=== PATIENT | male | born 1950 | race Caucasian/White ===

== ENCOUNTER → 2019-04-15 06:17 | Outpatient (CLI) | payer MEDICARE, OTHER, SELFPAY ==
--- NOTE | 2019-04-15 06:24 | ECHOD_ITS ---
Version 2 Reason For Study: PALPITATIONS Procedure This was a 2D Doppler, Color Flow transthoracic echocardiogram. Exam performed in department. Left Ventricle Normal LV size. The estimated ejection fraction is 55 %. No evidence for diastolic dysfunction. No regional wall motion abnormalities noted. Right Ventricle Normal RV size. Normal systolic function. Atria Normal left atrium. Normal right atrium. No doppler evidence for ASD. Mitral Valve There is no mitral valve stenosis. Trivial mitral valve insufficiency. Tricuspid Valve There is no tricuspid stenosis. Trivial tricuspid valve insufficiency. Pulmonary artery systolic pressure is 30 mmHg. Aortic Valve Trisinus/trileaflet aortic valve. There is no aortic stenosis. No aortic valve insufficiency. Pulmonic Valve There is no pulmonic valvular stenosis. No pulmonic valve insufficiency. Great Vessels Normal aortic root. Pericardium/Pleural No pericardial effusion. MMode/2D Measurements & Calculations LVIDd: 5.1 cm IVSd: 1.1 cm Ao root diam: 4.0 cm LVIDs: 3.3 cm LVPWd: 1.1 cm RVDd: 3.9 cm FS: 34.9 % LAV(MOD-bp): 45.9 ml LVAd ap4: 34.3 cm2 SV(MOD-sp4): 66.4 ml LAV(MOD-bp) Indexed: 22.7 ml/m2 EDV(MOD-sp4): 110.0 ml LAV(MOD-sp2): 50.1 ml EDV(sp4-el): 116.4 ml LAV(MOD-sp4): 38.7 ml LVAs ap4: 18.5 cm2 ESV(MOD-sp4): 43.6 ml ESV(sp4-el): 42.1 ml EF(MOD-sp4): 60.4 % EF(sp4-el): 63.9 % SV(sp4-el): 74.4 ml LA A4 area: 15.1 cm2 LA dimension(2D): 4.3 cm RA A4 area: 15.6 cm2 Time Measurements MV dec time: 0.25 sec Doppler Measurements & Calculations MV E max farshad: 80.1 cm/sec Lat Peak E' Farshad: 11.6 cm/sec Med Peak E' Farshad: 6.7 cm/sec MV A max farshad: 71.5 cm/sec E/E' lat: 6.9 E/E' med: 11.9 MV E/A: 1.1 Ao V2 max: 126.2 cm/sec LV V1 max: 117.9 cm/sec PA V2 max: 95.2 cm/sec Ao max P.4 mmHg LV V1 max P.6 mmHg PI end-d farshad: 81.1 cm/sec TR max farshad: 233.2 cm/sec TR max P.8 mmHg Interpretation Summary The estimated ejection fraction is 55 %. Pulmonary artery systolic pressure is 30 mmHg. No evidence for diastolic dysfunction. Ordering Physician: Rosa Nash Referring Physician: Rosa Nash Performed By: Karen Molina, RDCS, RVT
--- NOTE | 2019-04-20 17:29 | STRESSREP ---
Stress Test Report Date: 04/15/2019 Procedure: Exercise tolerance test/imaging study Indications: Chest pain, palpitations Consent: Per the patient Procedure: The patient exercised on a Aron protocol for 7 minutes achieving a peak heart rate of 151 bpm (100 % predicted maximal heart rate) with a peak blood pressure 180/92 mmHg and a peak MET capacity of 8.5 METs. The baseline ECG demonstrated normal sinus rhythm. The peak exercise ECG demonstrated no significant ischemic changes. EKG during recovery revealed no significant ischemic changes [There were no significant cardiac dysrhythmias pretest, during exercise, or recovery]. The functional capacity was considered normal forage. There was [no complaint of chest discomfort during exercise or recovery]. The examination was discontinued secondary to shortness of breath. Impression: 1. Technically adequate (percent predicted maximal heart rate greater than 85%) exercise tolerance test 2. Stress test is negative for exercise-induced EKG changes of ischemia 3. The test test is negative for exercise-induced chest pain 4. Functional capacity is[normal for age] 5. Nuclear images pending Myocardial perfusion imaging study: Technique: The patient was injected with 11 mCi of technetium 99m Cardiolite and subsequently rest SPECT Cardiolite nuclear imaging was obtained in the horizontal long, vertical long, and short axis views. The patient exercised on a Aron protocol. Please see above for details. The patient was injected with [] mCi of technetium 99m Cardiolite and subsequently stress SPECT Cardiolite nuclear imaging was obtained in the horizontal long, vertical long, and short axis views. A gated Cardiolite study at peak stress was obtained. Interpretation: Rest and stress SPECT Cardiolite nuclear imaging status post realignment, normalization, and attenuation correction, demonstrates normal myocardial radioisotope uptake. The gated Cardiolite study demonstrates no significant regional wall motion abnormalities. The reported LVEF is 61 %. Impression: 1. There is no evidence of significant ischemia or infarction. 2. The gated Cardiolite study reports an LVEF of 61 %. This note was generated with [employer] software. It may contain incorrect words, spelling, and punctuation that were not noted in checking the note before signing.
== END ==
PROVIDERS: Family Provider Internal Medicine Infectious Disease; PCP Internal Medicine Infectious Disease; Referring Provider Internal Medicine Infectious Disease; Visit Provider Internal Medicine Infectious Disease
DX: R00.2 Palpitations (principal); R07.9 Chest pain, unspecified
CPT/HCPCS: 78452; 93017; 93306; A9500; A4216

== ENCOUNTER → 2020-10-23 09:52 | Outpatient (CLI) | payer MEDICARE, OTHER, SELFPAY ==
--- NOTE | 2020-10-23 09:58 | RAD_ITS ---
STUDY: X-RAY - PELVIS AND BILATERAL HIPS REASON FOR EXAM: Male, 70 years old. RIGHT HIP PAIN TECHNIQUE: AP view of the pelvis.? 2 views of the right hip, and 2 views of the left hip were obtained. COMPARISON: None. FINDINGS: There is a non-specific bowel gas pattern. Normal visualized soft tissue structures. There is narrowing with cortical sclerosis and osteophyte formation of the sacroiliac joint consistent with degenerative osteoarthritic changes. Normal bilateral superior and inferior pubic rami. Normal pubic symphysis. Normal bilateral ischial tuberosities. Normal visualized right femoral head. Normal right acetabulum. There is moderate articular joint space narrowing of the right hip. Normal visualized left femoral head. Normal left acetabulum. There is moderate articular joint space narrowing of the left hip. RAD/Hips B/L min 2 views w/ Pelvis IMPRESSION: Age consistent degenerative changes, no demonstrated fracture or suspicious osseous lesion Electronically Signed: Rajesh Rome MD at 8:33 EDT , Service support ,
[2020-10-23 12:25] LABS: Absolute Lymphocyte Count 1.26 X10^3/uL (0.83-4.51); Absolute Neutrophil Count 2.3 X10^3/uL (2.0-7.7); Basophil# 0.05 X10^3/uL; Basophil% 1.2 % (0-1); Eosinophil# 0.17 X10^3/uL; Eosinophils% 4.2 % (0-5); Hematocrit 44.8 % (40-54); Hemoglobin 14.3 g/dL (13.0-16.5); Lymphocyte # 1.26 X10^3/ul (0.83-4.51); Lymphocyte % 31.1 % (19-41); Mean Corp Hgb Conc 31.9 g/dL (32-36); Mean Corpuscular Hgb 31.2 pg (27.0-32.0); Mean Corpuscular Volume 97.8 fL (80-94); Mean Platelet Vol. 11.6 fl (6.2-12.0); Monocyte% 7.4 % (0-10); NRBC Flagged by Analyzer 0 % (0-5); Neutrophil # 2.27 X10^3/uL (2.7-7.7); Neutrophil % 56.1 % (47-70); Platelet Count 201 K/mm3 (150-450); RBC Distribution Width CV 12.6 % (11.6-14.6); RBC Distribution Width SD 45.2 fl (35.1-43.9); Red Blood Count 4.58 M/mm3 (4.6-6.2); White Blood Count 4.1 K/mm3 (4.4-11.0)
[2020-10-23 12:49] LABS: ALB/GLOB Ratio 1.1 RATIO (0.9-2.4); AST(SGOT) 11 U/L (15-37); Alanine Aminotransfer ALT/SGPT 24 U/L (16-61); Albumin, Serum 3.9 g/dL (3.2-5.0); Alkaline Phosphatase 102 U/L (45-117); Anion Gap 3 (5-15); BUN 17 mg/dL (7-18); Calcium,Total 8.8 mg/dL (8.5-10.1); Chloride 107 mmol/L (98-107); Cholesterol 171 mg/dL (200); Creatinine, Serum 0.85 mg/dL (0.70-1.30); EST Glomerular Filtration Rate 94 mL/min (>60); Est Glom Filt Rate - Afr Amer 114 mL/min (>60); Globulin 3.5 g/dL (2.2-4.2); Glucose 81 mg/dL (74-106); High Density Lipoprotein 53 mg/dL; PSA,Total- Diagnostic 6.94 ng/mL (0.0-4.0); Potassium 3.7 mmol/L (3.5-5.1); Protein, Total 7.4 g/dL (6.4-8.2); Sodium Level 140 mmol/L (136-145); Triglycerides 84 mg/dL; Very Low Density Lipoprotein 17 mg/dL (5-40)
[2020-10-23 13:18] LABS: Hepatitis C Antibody Non-Reactive (Nonreactive)
== END ==
PROVIDERS: PCP Family Medicine; Referring Provider Family Medicine; Visit Provider Family Medicine
DX: M25.551 Pain in right hip (principal); R97.20 Elevated prostate specific antigen [PSA]; Z11.59 Encounter for screening for other viral diseases; Z13.220 Encounter for screening for lipoid disorders
CPT/HCPCS: 36415; 73521; 80053; 80061; 84153; 85025; 86803

== ENCOUNTER → 2022-01-11 | Outpatient (CLI) | payer MEDICARE, OTHER, SELFPAY ==
[2022-01-11 17:35] LABS: Absolute Lymphocyte Count 1.87 X10^3/uL (0.83-4.51); Absolute Neutrophil Count 2.5 X10^3/uL (2.0-7.7); Basophil# 0.06 X10^3/uL; Basophil% 1.2 % (0-1); Eosinophil# 0.26 X10^3/uL; Eosinophils% 5.1 % (0-5); Hematocrit 41.9 % (40-54); Hemoglobin 14.3 g/dL (13.0-16.5); Lymphocyte # 1.87 X10^3/ul (0.83-4.51); Lymphocyte % 36.7 % (19-41); Mean Corp Hgb Conc 34.1 g/dL (32-36); Mean Corpuscular Volume 96.8 fL (80-94); Mean Platelet Vol. 11.2 fl (6.2-12.0); Monocyte# 0.43 X10^3/uL; Monocyte% 8.4 % (0-10); NRBC Flagged by Analyzer 0 % (0-5); Neutrophil # 2.47 X10^3/uL (2.7-7.7); Neutrophil % 48.4 % (47-70); Platelet Count 184 K/mm3 (150-450); RBC Distribution Width CV 12.4 % (11.6-14.6); RBC Distribution Width SD 44.5 fl (35.1-43.9); Red Blood Count 4.33 M/mm3 (4.6-6.2); White Blood Count 5.1 K/mm3 (4.4-11.0)
[2022-01-11 18:03] LABS: Albumin, Serum 3.9 g/dL (3.2-5.0); BUN 20 mg/dL (7-18); BUN/Creat Ratio 22.3 RATIO (10-20); EST Glomerular Filtration Rate 88 mL/min (>60); Est Glom Filt Rate - Afr Amer 107 mL/min (>60); Glucose 82 mg/dL (74-106); Protein, Total 7.3 g/dL (6.4-8.2)
[2022-01-11 18:04] LABS: ALB/GLOB Ratio 1.1 RATIO (0.9-2.4); AST(SGOT) 18 U/L (15-37); Alanine Aminotransfer ALT/SGPT 29 U/L (16-61); Alkaline Phosphatase 92 U/L (45-117); Anion Gap 5 (5-15); Calcium,Total 8.7 mg/dL (8.5-10.1); Chloride 107 mmol/L (98-107); Globulin 3.4 g/dL (2.2-4.2); Sodium Level 139 mmol/L (136-145)
== END | disposition home or self-care (01) ==
LOC: MTLAB 15:28
PROVIDERS: PCP Family Medicine; Referring Provider Family Medicine; Visit Provider Family Medicine
DX: Z00.00 Encounter for general adult medical examination without abnormal findings (principal)
CPT/HCPCS: 36415; 80053; 85025

== ENCOUNTER 2022-03-10 09:16 | Emergency (ER) | payer MEDICARE, OTHER, SELFPAY ==
[2022-03-10 09:18] VITALS: BP 130/79; PULSE 70; RESP 18; TEMP 36.7; O2SAT 97; BMI 27.8
--- NOTE | 2022-03-10 09:32 | EDS_ITS ---
HPI History of Present Illness Chief Complaint: Lower Extremity Injury Detail of Chief Complaint: pain R calf Informant: patient Onset/Context/Timing Onset: Weeks (1) Context: Gradual Onset Timing: Waxes and wanes Quality of Pain: - (sore) Location: R calf Current Severity: Moderate Maximum Severity: Moderate Worsened by: palpation Relieved by: walking Associated Symptoms Associated Symptoms: Negative for Parasthesia, Weakness or Loss of Funtion Narrative Narrative: Patient has a remote history of a DVT, concern he may have another 1. No longer on anticoagulants. He states he traveled home by car from the [facility] 1 week ago and since then he has had some soreness in his right calf off and on waxing and waning. It is better when he walks. There is a slight amount of redness that has not progressed. The pain is not progressed but it is radiating into his thigh. He called his doctor's office before the weekend and was advised to come to the ER, but for multiple reasons today Friday is the day he could get here. He denies any chest pain, shortness of breath, palpitations, syncope. He states during his travel, he was out of the car not infrequently, stayed overnight twice. [facility] Medical History (Updated 03/10/22 @ 11:[address] Rosalio Hester MD) Right leg DVT Allergy/AdvReac Type Severity Reaction Status Date / Time No Known Allergies Allergy Verified 03/10/22 09:18 Social History Smoking Status: Never smoker [facility] ED Constitutional Constitutional ED: Denies chills or fever(s) Musculoskeletal Musculoskeletal: Reports extremity pain; Denies neck pain Integumentary Denies Abrasions, rash or wounds Neurologic Neurologic: Denies paresthesias or weakness EXAM Physical Exam Const Vital Signs: 03/10/22 09:18 Temperature 98.0 F Temperature Source Temporal Pulse Rate 70 Respiratory Rate 18 Blood Pressure 130/79 H Blood Pressure Mean 96 Pulse Ox 97 Oxygen Delivery Method Room Air Positive well nourished and well developed General Appearance ED: well developed and NAD Neck full ROM and supple Back/Spine normal ROM and normal to inspection Extremity full ROM Extremity Narrative: Point tender in the right calf at 1 particular area that is slightly erythematous. There is no induration or abscess. There is no lymphangitis or inguinal lymphadenopathy. There is no thigh tenderness or popliteal tenderness. There is no edema or asymmetry compared with the contralateral side except for the slight erythematous area that is tender. It is in a linear distribution that would be consistent with a superficial venous thrombosis. He has several minor venous varicosities in separate areas. Neuro oriented x3, no focal motor deficits and no sensory deficits noted Sensorium / Orientation: alert Psych mental status grossly normal and thought process normal Skin no wounds Skin Narrative: Slight erythema at 1 point in his right calf see above. Rashes: no rashes MDM MDM MDM Narrative Medical decision making narrative: Duplex ultrasound right lower extremity was done, it does show a small SVT where the patient is having pain and tenderness and redness, but he also has a gastroc vein DVT that is distal to the trifurcation. It is provoked since the patient recently traveled around the same time this started. Given this, it would be reasonable to do serial ultrasounds to continue monitoring and place him on anticoagulation if the clot travels to or beyond the trifurcation at the popliteal fossa. We will help set that up for him, I advised warm compresses for the SVT and he is comfortable with that plan. Discussed with his PCP Dr. Isaacs on following up for the serial ultrasound results. Discharge Plan Triage Chief Complaint: Lower Extremity Injury ED Provider: Rosalio Hester Dx/Rx/DC Orders Clinical Impression: Deep vein thrombosis (DVT) of right lower extremity, Acute superficial venous thrombosis of right lower extremity Instructions: DVT Dc Other Ambulatory Orders: Venous Duplex US, Unilateral (Stat) Facility: [facility] - Location: [facility] Ordered By: Dr. Rosalio Hester Primary Care Provider: Fareed Isaacs Referrals: Fareed Isaacs MD [Primary Care Provider] - Activity Restrictions/Additional Instructions: Assuming nothing changes we will get serial ultrasounds on days 3, 7, 10, 14. As long as scheduling goes okay, this will be on March 12, , , and . Since some of these fall on weekends, it is possible ultrasound we will schedule you for a different day which is okay. Disposition Disposition: Home, Self Care
--- NOTE | 2022-03-10 09:32 | VDLE_ITS ---
Reason For Study: Pain RIGHT LEFT CFV is compressible, spontaneous, phasic, CFV is compressible, spontaneous, phasic, competent and demonstrates normal competent, and demonstrates normal augmentation. augmentation. FV is compressible, spontaneous, phasic, competent and demonstrates normal augmentation. POP V is compressible, spontaneous, phasic, competent and demonstrates normal augmentation. T/P Trunk is compressible. PTV is compressible. RT PerV is compressible. Rt GastrocV is dilated and non compressible consistent with acute DVT Rt GSV at knee is dilated and non compressible consistent with acute SVT. Procedure This is a venous duplex using B-mode, color flow and spectral Doppler. Exam performed portable in ED. A preliminary report was called and/or faxed to Dr. Hester. VL/Venous Duplex US, Unilateral Interpretation Summary Acute deep vein thrombosis is noted in the right gastrocnemius vein. Acute superficial vein thrombosis is noted in the right great saphenous vein at the knee Ordering Physician: Rosalio Hester Referring Physician: Fareed Isaacs Performed By: Sharon Fournier RDCS, RVT
== END 2022-03-10 12:10 | disposition home or self-care (01) ==
PROVIDERS: Emergency Provider Emergency Medicine; PCP Family Medicine; Visit Provider Emergency Medicine
DX: I82.401 Acute embolism and thrombosis of unspecified deep veins of right lower extremity (principal); I82.811 Embolism and thrombosis of superficial veins of right lower extremity; Z86.718 Personal history of other venous thrombosis and embolism
CPT/HCPCS: 93971; 99282

== ENCOUNTER → 2022-03-12 | Outpatient (CLI) | payer MEDICARE, OTHER, SELFPAY ==
--- NOTE | 2022-03-12 14:01 | VDLE_ITS ---
Reason For Study: pain RIGHT CFV is compressible, spontaneous, phasic, competent and demonstrates normal augmentation. FV is compressible, spontaneous, phasic, competent and demonstrates normal augmentation. POP V is compressible, spontaneous, phasic, competent and demonstrates normal augmentation. T/P Trunk is compressible. PTV is compressible. RT PerV is compressible. Gastroc V is dilated and noncompressible. GSV is dilated and noncompressible at the knee. No significant change from previous study done 03/10/22. Procedure This is a venous duplex using B-mode, color flow and spectral Doppler. Exam performed in department. The exam was abbreviated due to the COVID 19 protocol. The exam was diagnostic. VL/Venous Duplex US, Unilateral Interpretation Summary Acute deep vein thrombosis is noted in the right gastrocnemius vein. Acute superficial vein thrombosis is noted in the right great saphenous vein. Negative for propagation Ordering Physician: Rosalio Hester Referring Physician: Fareed Isaacs MD Performed By: Murray Samuels RVT
== END | disposition home or self-care (01) ==
LOC: CVS 14:00
PROVIDERS: PCP Family Medicine; Referring Provider Emergency Medicine; Visit Provider Emergency Medicine
DX: I82.811 Embolism and thrombosis of superficial veins of right lower extremity (principal)
CPT/HCPCS: 93971

== ENCOUNTER → 2022-03-25 | Outpatient (CLI) | payer MEDICARE, OTHER, SELFPAY ==
--- NOTE | 2022-03-25 13:01 | VDLE_ITS ---
Reason For Study: History of DVT RIGHT LEFT CFV is compressible, spontaneous, phasic, CFV is compressible, spontaneous, phasic, competent and demonstrates normal competent, and demonstrates normal augmentation. augmentation. FV is compressible, spontaneous, phasic, competent and demonstrates normal augmentation. POP V is compressible, spontaneous, phasic, competent and demonstrates normal augmentation. T/P Trunk is compressible. PTV is compressible. RT PerV is compressible. Gastroc V is dilated and noncompressible. GSV is dilated and noncompressible at the knee, but does not appear to extend above the knee. Procedure This is a venous duplex using B-mode, color flow and spectral Doppler. Exam performed in department. The exam was diagnostic. VL/Venous Duplex US, Unilateral Interpretation Summary Acute deep vein thrombosis is noted in the right gastrocnemius vein. Acute superficial vein thrombosis is noted in the right great saphenous vein at the knee Ordering Physician: Rosalio Hester Referring Physician: Fareed Isaacs MD Performed By: Ab Bauer RVT
== END | disposition home or self-care (01) ==
LOC: CVS 13:00
PROVIDERS: PCP Family Medicine; Referring Provider Emergency Medicine; Visit Provider Emergency Medicine
DX: I82.811 Embolism and thrombosis of superficial veins of right lower extremity (principal)
CPT/HCPCS: 93971

== ENCOUNTER → 2022-04-29 | Outpatient (CLI) | payer MEDICARE, OTHER, SELFPAY ==
--- NOTE | 2022-04-29 13:06 | VDLE_ITS ---
Reason For Study: HX of DVT RIGHT LEFT GSV is normal. CFV is compressible, spontaneous, phasic, CFV is compressible, spontaneous, phasic, competent, and demonstrates normal competent and demonstrates normal augmentation. augmentation. FV is compressible, spontaneous, phasic, competent and demonstrates normal augmentation. POP V is compressible, spontaneous, phasic, competent and demonstrates normal augmentation. T/P Trunk is compressible. PTV is compressible. RT PerV is compressible. RT Gastroc V is dilated and noncompressible with mixed echogenic filling. Procedure This is a venous duplex using B-mode, color flow and spectral Doppler. Exam performed in department. The exam was diagnostic. A preliminary report was called and/or faxed to Dr. Fareed Isaacs. VL/Venous Duplex US, Unilateral Interpretation Summary Subacute deep vein thrombosis is noted in the right gastrocnemius vein. Ordering Physician: Faered Isaacs Referring Physician: Fareed Isaacs Performed By: Ab Bauer RVT
== END | disposition home or self-care (01) ==
LOC: CVS 13:03
PROVIDERS: PCP Family Medicine; Referring Provider Family Medicine; Visit Provider Family Medicine
DX: I82.461 Acute embolism and thrombosis of right calf muscular vein (principal)
CPT/HCPCS: 93971

== ENCOUNTER → 2022-06-19 | Outpatient (CLI) | payer MEDICARE, OTHER, SELFPAY ==
--- NOTE | 2022-06-19 14:54 | VDLE_ITS ---
Reason For Study: Embolism RIGHT LEFT GSV is normal. CFV is compressible, spontaneous, phasic, CFV is compressible, spontaneous, phasic, competent, and demonstrates normal competent and demonstrates normal augmentation. augmentation. FV is compressible, spontaneous, phasic, competent and demonstrates normal augmentation. POP V is compressible, spontaneous, phasic, competent and demonstrates normal augmentation. T/P Trunk is compressible. PTV is compressible. RT PerV is compressible. Right Gastroc vein is partially noncompressible with mixed echogenicity within, venous flow noted. Procedure This is a venous duplex using B-mode, color flow and spectral Doppler. Exam performed in department. Compared to 04/29/2022, improvement noted. VL/Venous Duplex US, Unilateral Interpretation Summary Subacute deep vein thrombosis is noted in the right gastrocnemius vein. Ordering Physician: Fareed Isaacs Referring Physician: Fareed Isaacs Performed By: Sierra Mcgill RVT
[2022-06-19 16:16] LABS: PSA,Total- Diagnostic 9.12 ng/mL (0.0-4.0)
== END | disposition home or self-care (01) ==
LOC: CVS 14:54 → LAB 15:19
PROVIDERS: PCP Family Medicine
DX: R97.20 Elevated prostate specific antigen [PSA] (principal); I82.811 Embolism and thrombosis of superficial veins of right lower extremity
CPT/HCPCS: 36415; 84153; 93971

== ENCOUNTER → 2022-09-17 | Outpatient (CLI) | payer MEDICARE, OTHER, SELFPAY ==
--- NOTE | 2022-09-17 12:51 | VDLE_ITS ---
Reason For Study: Rt leg DVT RIGHT LEFT GSV is normal. CFV is compressible, spontaneous, phasic, CFV is compressible, spontaneous, phasic, competent, and demonstrates normal competent and demonstrates normal augmentation. augmentation. FV is compressible, spontaneous, phasic, competent and demonstrates normal augmentation. POP V is compressible, spontaneous, phasic, competent and demonstrates normal augmentation. T/P Trunk is compressible. PTV is compressible. RT PerV is compressible. Right Gastroc vein is partially compressible with bright intraluminal echoes, venous flow noted. Procedure This is a venous duplex using B-mode, color flow and spectral Doppler. Exam performed in department. Compared to 06/19/22. VL/Venous Duplex US, Unilateral Interpretation Summary Subacute deep vein thrombosis is noted in the right gastrocnemius vein, unchang ed from previous study Ordering Physician: Fareed Isaacs Referring Physician: Fareed Isaacs Performed By: Sierra Mcgill RVT
== END | disposition home or self-care (01) ==
LOC: CVS 12:50
PROVIDERS: PCP Family Medicine; Referring Provider Family Medicine; Visit Provider Family Medicine
DX: I82.461 Acute embolism and thrombosis of right calf muscular vein (principal)
CPT/HCPCS: 93971

== ENCOUNTER → 2022-12-12 | Outpatient (CLI) | payer MEDICARE, OTHER, SELFPAY ==
--- NOTE | 2022-12-12 12:46 | VDLE_ITS ---
Reason For Study: HX RLE DVT RIGHT LEFT GSV is normal. CFV is compressible, spontaneous, phasic, CFV is compressible, spontaneous, phasic, competent, and demonstrates normal competent and demonstrates normal augmentation. augmentation. FV is compressible, spontaneous, phasic, competent and demonstrates normal augmentation. POP V is compressible, spontaneous, phasic, competent and demonstrates normal augmentation. T/P Trunk is compressible. PTV is compressible. RT PerV is compressible. Right Gastroc vein is partially compressible with bright web-like intraluminal echoes consistent with chronic DVT noted on the botello of the vessel. Venous flow noted. Procedure This is a venous duplex using B-mode, color flow and spectral Doppler. Exam performed in department. The exam was diagnostic. VL/Venous Duplex US, Unilateral Interpretation Summary Chronic deep vein thrombosis is noted in the right gastrocnemius vein. Ordering Physician: Fareed Isaacs Referring Physician: Fareed Isaacs Performed By: Ab Bauer RVT
== END | disposition home or self-care (01) ==
PROVIDERS: PCP Family Medicine; Referring Provider Family Medicine; Visit Provider Family Medicine
DX: I82.411 Acute embolism and thrombosis of right femoral vein (principal)
CPT/HCPCS: 93971

== ENCOUNTER 2023-04-08 12:40 | Outpatient (CLI) | payer MEDICARE, OTHER, SELFPAY ==
[2023-04-08 15:28] LABS: Absolute Lymphocyte Count 1.44 X10^3/uL (0.83-4.51); Absolute Neutrophil Count 2.3 X10^3/uL (2.0-7.7); Basophil# 0.05 X10^3/uL; Basophil% 1.2 % (0-1); Eosinophil# 0.11 X10^3/uL; Eosinophils% 2.6 % (0-5); Hematocrit 43.8 % (40-54); Hemoglobin 14.2 g/dL (13.0-16.5); Lymphocyte # 1.44 X10^3/ul (0.83-4.51); Lymphocyte % 34.4 % (19-41); Mean Corp Hgb Conc 32.4 g/dL (32-36); Mean Corpuscular Hgb 31.6 pg (27.0-32.0); Mean Corpuscular Volume 97.3 fL (80-94); Mean Platelet Vol. 11.3 fl (6.2-12.0); Monocyte# 0.33 X10^3/uL; Monocyte% 7.9 % (0-10); NRBC Flagged by Analyzer 0 % (0-5); Neutrophil # 2.25 X10^3/uL (2.7-7.7); Neutrophil % 53.7 % (47-70); Platelet Count 201 K/mm3 (150-450); RBC Distribution Width CV 12.8 % (11.6-14.6); RBC Distribution Width SD 45.8 fl (35.1-43.9); White Blood Count 4.2 K/mm3 (4.4-11.0)
[2023-04-08 15:57] LABS: ALB/GLOB Ratio 1.1 RATIO (0.9-2.4); AST(SGOT) 15 U/L (15-37); Alanine Aminotransfer ALT/SGPT 27 U/L (16-61); Albumin, Serum 3.9 g/dL (3.2-5.0); Alkaline Phosphatase 102 U/L (45-117); Anion Gap 5 (5-15); BUN 15 mg/dL (7-18); BUN/Creat Ratio 17.5 RATIO (10-20); Calcium,Total 8.9 mg/dL (8.5-10.1); Chloride 109 mmol/L (98-107); Cholesterol 169 mg/dL (200); Creatinine, Serum 0.86 mg/dL (0.70-1.30); EST Glomerular Filtration Rate 92 mL/min (>60); Est Glom Filt Rate - Afr Amer 112 mL/min (>60); Globulin 3.7 g/dL (2.2-4.2); Glucose 80 mg/dL (74-106); High Density Lipoprotein 49 mg/dL; Potassium 3.9 mmol/L (3.5-5.1); Protein, Total 7.6 g/dL (6.4-8.2); Sodium Level 140 mmol/L (136-145); Triglycerides 87 mg/dL; Very Low Density Lipoprotein 17 mg/dL (5-40)
== END 2023-04-08 23:59 | disposition home or self-care (01) ==
LOC: MTLAB 12:42
PROVIDERS: PCP Family Medicine; Referring Provider Family Medicine; Visit Provider Family Medicine
DX: R97.20 Elevated prostate specific antigen [PSA] (principal); M16.9 Osteoarthritis of hip, unspecified; Z13.220 Encounter for screening for lipoid disorders
CPT/HCPCS: 36415; 80053; 80061; 84153; 85025

== ENCOUNTER 2024-06-11 14:30 | Outpatient (RCR) | payer MEDICARE, OTHER, SELFPAY ==
--- NOTE | 2024-05-19 16:48 | HP.PTEVAL ---
Patient's Visit Information Visit Information Visit Information: JASMIN GUAMAN is a 73 year old M referred to Physical Therapy by Dr. Fareed Isaacs MD with a diagnosis of L knee pain. Date of Evaluation: 05/19/24 Physical Therapist: Fareed Silvestre, DPT, OCS, CSCS Visit Plan Frequency: 1x/Week Duration: 4-6 Weeks Plan: weekly x 3-8 for progression o f HEP. IE HE P: SLR abd, ext, flexion 3x10 and prone quad stretch 30 5x all daily and education on degeneration and activity modification. progress HEP each week with pics, next hip stabs and core on mat, then WB LE, quad rollout and stretch as needed. Subjective Subjective: L knee pain for > 2 yrs or so. I am a walker. Can do a mile and then it hurts, wants to do 2 miles. Can do this but needs ibuprofen then it is not as noticeable. Is a fitness walker and can also get pain if he stands too long. Gone with sitting. Sleep is Ok, needs pillow between legs. pain is medial joint line up to 9/10. Activitiy is normal outside of two mille walks being difficulty. Not employed. Free time is gardening and yard work and they might make it slightly noticeable if on uneven surface. Winter activity is sluggish. No regular exercise outside of walking and neck rolls and back stretches. Cat and camel and QS, SLR, HS stretch in doorway, gastroc stretch, Heels slide, HS isometrics. Pain medial knee.: Pain Intensity (Out of 10): 0 Pain Intensity Range: 0 and 9 Objective Objective: Walks without antalgia today I and easily, steps recirpocally without paion, bed and chair trasnfer I. AROM 0-138 B knees, quads tight L>R, hip flexors tights. AROM hips 8 ext and WFL abd and rotations without pain. ankle aROM WFL, no pain. reflexes 2/3 patella and achilles B sensation WNL to gross light touch B LE. strength is 4+ B knee flexiojn and ext without pain, hip abd 3+ B and ext 3 B, flexion 4- B. rotations 3+ B. No pain. Tender medial joint line in L knee moderatly. Not in patlla or patellar ligament. - valgus and - varus, - bounce home, - patellar grind, - scour. Balance/Special Test Scores Lower Extremity Functional Score: 56 Goals Goal 1:: I appropriate HEP for LE stretch adn strength of hip and knee to manage condition Goal Time Frame: 4-6 Weeks Goal 2:: Walk two miles without pain in knee without necessitating ibuprofen. Goal Time Frame: 4-6 Weeks Goal 3:: LEFS 65 Goal Time Frame: 4-6 Weeks Rehabilitation Potential Physical Therapy Diagnosis: L knee weakness and tightness likely degenerative pain limiting funciton. Rehabilitation Potential: Fair Anticipated Interventions Patient/Client Instruction: Educate patient on: Condition and Plan of Care For the Purpose of:: To decrease pain, To increase ROM, To improve nutrient delivery to tissue, To improve muscle performance and motor function and To increase tolerance to activity/condition/position Therapeutic Exercise to Include: Strength training, Flexibilty training and Active ROM For the Purpose of:: To decrease pain, To increase ROM, To improve nutrient delivery to tissue, To improve muscle performance and motor function and To increase tolerance to activity/condition/position Manual Therapy Techniques to Include: Mobilization and Soft tissue mobilization For the Purpose of:: To decrease pain, To increase ROM and To improve nutrient delivery to tissue Text: Thank you for the opportunity to evaluate your patient. For Medicare and Medicare HMO plans, please review the plan of care and approve it. It will need to be FAXED BACK to us at [phone] for Medicare purposes. For Medicare only, by signing this I certify the plan of care. Please let me know if there are questions or concerns regarding this plan of care. Physician Signature: Date:
--- NOTE | 2024-06-11 14:56 | HP.PTDCSUM ---
Discharge Summary D/C summary: It has been my pleasure to treat JASMIN GUAMAN referred by Dr. Fareed Isaacs MD, with the diagnosis of L knee pain for a total of 4 visit(s). Discharge Date: 06/11/24 Please see the following information for a summary of their discharge status. Subjective Subjective: Exercises going well and I am happy. To doctor in the spring. Exercises are going well. I am confident with them. Has avoided the plank and side lying plank. Knee is slightly improved overall. it is less painful/sore when I walk. No change to overall ibuprofen dosage. Pain still gets to 1/10 with 2 mile walk. Gone quickly. Pain medial knee.: Pain Intensity (Out of 10): 0 Overall Improvement % Improvement: 75 Objective Objective/Function: Full aROM without pain, gait is normal, steps are not painful at all and reciprocal. see goals. Goals Goal 1:: I appropriate HEP for LE stretch adn strength of hip and knee to manage condition Goal Progress: Goal Met Goal 2:: Walk two miles without pain in knee without necessitating ibuprofen. Goal Progress: 1/10 Goal 3:: LEFS 65 Goal Progress: Goal Met Plan Plan: d/c to HEP D/C Information Discharge Comments: Pt to continue via HEP. d/c sentence: If there are questions or concerns regarding this patient's physical therapy, please feel free to call me at [phone]. Thank you for the referral of this patient. Sincerely, Fareed Silvestre, DPT, OCS, CSCS Balance/Gait/Functional tests Balance/Special Test Scores Lower Extremity Functional Score: 66 Improvement % Improvement: 75
== END 2024-06-11 15:01 | disposition home or self-care (01) ==
LOC: PT 14:30
PROVIDERS: PCP Family Medicine; Referring Provider Family Medicine; Visit Provider Family Medicine
DX: M25.562 Pain in left knee (principal)
CPT/HCPCS: 97110; 97161; 97530

== ENCOUNTER → 2024-07-01 | Outpatient (CLI) | payer MEDICARE, OTHER, SELFPAY ==
[2024-07-01 18:27] LABS: AST(SGOT) 15 U/L (15-37); Alanine Aminotransfer ALT/SGPT 26 U/L (16-61); Albumin, Serum 3.8 g/dL (3.2-5.0); Alkaline Phosphatase 113 U/L (45-117); Anion Gap 5 (5-15); BUN 18 mg/dL (7-18); BUN/Creat Ratio 18.8 RATIO (10-20); Calcium,Total 8.9 mg/dL (8.5-10.1); Chloride 107 mmol/L (98-107); Creatinine, Serum 0.96 mg/dL (0.70-1.30); EST Glomerular Filtration Rate 81 mL/min (>60); Est Glom Filt Rate - Afr Amer 98 mL/min (>60); Globulin 3.8 g/dL (2.2-4.2); Glucose 88 mg/dL (74-106); Potassium 3.9 mmol/L (3.5-5.1); Protein, Total 7.6 g/dL (6.4-8.2); Sodium Level 142 mmol/L (136-145)
== END | disposition home or self-care (01) ==
LOC: MTLAB 16:13
PROVIDERS: PCP Family Medicine; Referring Provider Family Medicine; Visit Provider Family Medicine
DX: N40.0 Benign prostatic hyperplasia without lower urinary tract symptoms (principal); R97.20 Elevated prostate specific antigen [PSA]
CPT/HCPCS: 36415; 80053; 84153

== ENCOUNTER → 2024-09-28 | Outpatient (CLI) | payer MEDICARE, OTHER, SELFPAY ==
--- NOTE | 2024-09-28 15:36 | RAD_ITS ---
PROCEDURE: KNEE 4 OR MORE VIEWS 09/28/2024 REASON FOR EXAM: PAIN MEDIAL KNEE TECHNIQUE: 4 view(s) of the left knee COMPARISON: None FINDINGS: Bones: There are no fractures or dislocations. No osseous destructive processes are seen. A small spur is seen off the anterior superior aspect of the patella. Joints: Arthritic changes are seen involving the medial femoral tibial joint. There is increased calcific density identified in the lateral femorotibial joint compatible with chondrocalcinosis. Effusion: There is no suprapatellar bursa effusion. Soft tissues: No appreciable soft tissue swelling or masses are seen. RAD/Knee 4 or More Views IMPRESSION: Arthritic changes are seen involving the medial femoral tibial joint left knee. Chondrocalcinosis involving the lateral femorotibial joint left knee. Reading Location: [id number]
== END | disposition home or self-care (01) ==
LOC: MTRAD 15:33
PROVIDERS: PCP Family Medicine; Referring Provider Family Medicine; Visit Provider Family Medicine
DX: M25.562 Pain in left knee (principal)
CPT/HCPCS: 73564